=== PATIENT | male | born 1990 ===

== ENCOUNTER 2024-11-08 17:23 | Emergency (ER) | payer SELFPAY ==
[2024-11-08 17:24] VITALS: BMI 33.3
[2024-11-08 17:45] VITALS: BP 133/94; PULSE 96; RESP 20; TEMP 36.8; O2SAT 97
--- NOTE | 2024-11-08 17:49 | PD.EDRME ---
Rapid Medical Screening Exam RME Arrival date/time: 11/08/24 17:23 33-year-old male presents emergency department today stating that he swallowed a bee while at work today and it stung him in his throat Chief Complaint: Dental/Oral/Throat Vital signs: Vital Signs Temperature 98.3 F 11/08/24 17:45 Pulse Rate 96 11/08/24 17:45 Respiratory Rate 20 11/08/24 17:45 Blood Pressure 133/94 H 11/08/24 17:45 Pulse Oximetry (%) 97 11/08/24 17:45 Oxygen Delivery Method Room Air 11/08/24 17:45
[2024-11-08] MEDS: DiphenhydrAMINE 25 MG CAPSULE PO (17:51)
[2024-11-08] MEDS: DEXAMETHASONE SOD PHOS INJ 10 MG/ML VIAL PO (17:51)
--- NOTE | 2024-11-08 21:23 | PC.NURSE ---
not answering at this time
--- NOTE | 2024-11-08 23:17 | PC.NURSE ---
PT CALLED FROM THE [facility] WITH NO ANSWER.
--- NOTE | 2024-11-08 23:36 | PC.NURSE ---
PT CALLED FROM [facility] X[facility] WITH NO ANSWER
== END 2024-11-08 23:19 | disposition left against medical advice (07) ==
PROVIDERS: Emergency Provider Emergency Medicine
DX: T63.441A Toxic effect of venom of bees, accidental (unintentional), initial encounter (principal); Z53.29 Procedure and treatment not carried out because of patient's decision for other reasons
CPT/HCPCS: 99281; J1100; A9270